=== PATIENT | male | born 1945 | race Caucasian/White ===

== ENCOUNTER 2017-04-09 08:28 | Emergency (ER) | payer BC, OTHER ==
--- NOTE | 2017-04-09 11:38 | DI ---
CT CHEST W/CONTRAST,04/09/2017 8:32 AM: Clinical History: Hemoptysis. Previous Exam: None at this facility. Note: On the first attempt, the intravenous catheter was displaced during scanning, and the contrast bolus extravasated into the subcutaneous soft tissues. The extravasated fluid measured approximately 3 mm in diameter. The [facility]. Findings: Multiple helically acquired CT images are obtained through the chest both before and after intravenou s contrast. The thyroid is unremarkable. There is some mild peripheral vascular calcifications of the aorta. The lungs are clear. The pulmonary arteries are normal. The trachea and major bronchi are unremarkable. There is no evidence of vascular malformation. Diffuse degenerative changes of the thoracic spine are seen of the lower cervical spine. Impression: No acute intrathoracic pathology. No findings to explain the hemoptysis.
[2017-04-09 15:18] VITALS: RESP 16; TEMP 97.4
--- NOTE | 2017-04-09 22:48 | PDOC ---
Upper Extremity Problem HPI - General Chief Complaint: Upper Extremity Problem/Injury Stated Complaint: Right arm swelling s/p contrast extravasation Date Seen by Provider: 04/09/17 Time Seen by Provider: 12:50 Source: POSITIVE: Patient Exam Limitations: POSITIVE: No limitations Nurse's Notes Reviewed & Considered: Yes - History of Present Illness Initial Comments: The patient is a 71-year-old male. Around 9 AM this morning he was having a lung scan done with contrast and the contrast was being injected into a right antecubital vein. An uncertain amount of contrast material extravasated subcutaneously. Patient has noted some swelling over the distal aspect of the volar surface of the right upper arm and over the proximal aspect of the volar surface of the right forearm. Patient denies any pain. No sensory motor or vascular symptoms. No vesiculation. No rubor or calor. 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) Severity: Moderate Quality: REPORTS: Other (Patient denies any associated pain) Recent Injury: REPORTS: Yes (Extravasation of contrast media subcutaneously as above.) Context of Injury: REPORTS: Other (Extravasation of contrast media) Location at Time of Onset: REPORTS: Other (Radiology department) Modifying Factors: REPORTS: Nothing Exacerbates Associated Symptoms: DENIES: Fever, Chills, Diaphoresis, Shortness of Breath, Difficulty Breathing, Chest Pain, Chest Discomfort, Nausea, Vomiting, Neck Pain , Jaw Pain, Back Pain, See Diagram, Other Similar Symptoms Previously: No Recent Care Received: Recently Seen, Treated by MD (As above) Any Prior Injuries Related to Current Complaint?: No - Patient Home Medications Home Medications: Home Medications Naproxen Sodium [Aleve] 2 cap PO QD PRN #60 12/01/12 - Patient Allergies Allergies/Adverse Reactions: Allergies Allergy/AdvReac Type Severity Reaction Status Date / Time No Known Allergies Allergy Unverified 04/09/17 12:47 Past Medical History - heen HEENT History: Denies History Cardiovascular History: Denies History Additional Cardiovasular History: 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 RESOLVED LATER IN LIFE Respiratory History: COPD Additional Respiratory History: SMOKER FOR 50 YEARS. Gastrointestinal History: Denies History Genitourinary History: Denies History Endocrine History: Denies History Musculoskeletal History: Arthritis, Back Pain Prosthesis or Implant: No Neurological History: Denies History Blood Disorders: Denies History Psychiatric History: Denies History Cancer History: Denies History In Past Year Been Physically Harmed or Verbally Threatened: No History of MDRO: No Tobacco Use: Former Smoker Alcohol Use: Heavy Substance Use Type: None Previous Surgical History: Yes Type / Date of Surgery: MULTIPLE LEFT KNEE SCOPE/ LEFT TKA/ RIGHT KNEE SCOPE X 2 / BILAT RCR/ RIGHT ELBOW REPAIR Anesthesia Reactions: No Malignant Hyperthermia: No Significant Family History: Heart disease, Cancer, COPD, Lung disease Past Medical History Reviewed: Reviewed - No Changes ROS - Limitations ROS Limitations: No Limitations Constitution: REPORTS: Denies Symptoms Cardiovascular: REPORTS: Denies Cardiac Symptoms Respiratory: REPORTS: Denies Resp Symptoms Neurological: REPORTS: Denies Neuro Symptoms Gastrointestinal: REPORTS: Denies GI Symptoms Endocrine: REPORTS: Denies Symptoms Musculoskeletal: REPORTS: Other (Some swelling, nontender, right arm as indicated; see diagram. No evidence of compartment syndrome.) Genitourinary: REPORTS: Denies Symptoms Eyes: REPORTS: Denies Symptoms ENT: REPORTS: Denies Symptoms Skin: REPORTS: Denies Skin Symptoms Lympathic: REPORTS: Denies Lympathic Symptoms Immunologic: POSITIVE: Denies Symptoms Psychiatric: POSITIVE: Denies Psych Symptoms Upper Extremity Problem Exam - General Appearance General Appearance: POSITIVE: Alert, Cooperative, No Acute Distress, No Evidence of Trauma - Upper Extremity Upper Extremity: POSITIVE: Non-Tender, No Edema (As above; see diagram), Normal ROM, Joints Normal, Swelling, See Diagram. NEGATIVE: Tenderness, Limited Active ROM, Limited Passive ROM, Limited Functional ROM, Limited ROM d/t Pain, Axillary Lymphadenopathy, Positive Tony Test, Joint Swelling, Joint Effusion Vascular: POSITIVE: No Vascular Compromise, Full Pulses, Equal Pulses. NEGATIVE : Pale, Cool Extremity, Poor Capillary Refill, Absent Pulses - Skin Skin: POSITIVE: Normal Color, Warm, Dry, No Rash - Neuro / Psych Peripheral Neuro Exam: POSITIVE: Sensation Normal, Motor Normal Central Neuro Exam: POSITIVE: Oriented to Person, Oriented to Place, Oriented to Time, CN's Normal as Tested, Normal Speech, Normal Cognition, Appropriate Mood, Appropriate Affect - Respiratory / CVS Respiratory / CVS: POSITIVE: No Respiratory Distress, Breath Sounds Normal, Regular Rate & Rhythm, Heart Sounds Normal Peripheral Pulses: Radial (R): 2+, Radial (L): 2+ Images - Upper Extremities Upper Extremities: 1 - Swelling; nontender. Upper Ext Problem Progress - Results Reviewed by me Lab Results:: Laboratory Results 04/09/17 Range/Units 09:05 BUN 18 (7-22) mg/dL Creatinine 0.9 (0.70-1.50) mg/dL - Patient's Progress Pain Medication Addressed: POSITIVE: Yes (Recommended Advil or Tylenol for mild discomfort; patient to return to the emergency room immediately if significant pain develops) School/Work Release Addressed: POSITIVE: Not Applicable Re-Examine Time:: 13:10 Status: POSITIVE: Unchanged - Consult Counseled: POSITIVE: Patient Patient Care Time - Estimated PCT Patient Care Time (In Minutes): 23 Vital Signs - VS Reviewed Vital Signs Reviewed: Yes Discharge Clinical Impression: Extravasation accident Discharge Disposition: Discharged to Home Condition: Fair Additional Instructions: You have some soft tissue swelling in your right arm due to extravasation of radiological contrast dye. I see no evidence, however, of chemical burn or what is known as a compartment syndrome, which is increased pressure in the muscles of the arm. I believe he'll be okay. Please elevate sure arm. Cool compresses, 20 minutes on and 20 minutes off. You might have some soft tissue swelling for a few days. Please return anytime if you develop redness, blisters , or any other skin changes. Also please return if you develop severe pain in the forearm, or if condition worsens in any way. Follow Up With: BRITNEY JEFFERSON [Primary Care Provider] - (Instructions as above. Follow-up with your primary care provider. Return here as necessary.)
== END 2017-04-09 13:25 | disposition home or self-care (01) ==
LOC: CT 08:28 → ER 08:28 → EDSTATUS 09:00 → ER 13:25
DX: T80.818A Extravasation of other vesicant agent, initial encounter (principal); R22.31 Localized swelling, mass and lump, right upper limb
CPT/HCPCS: 36415; 71260; 82565; 84520; 99283